=== PATIENT | female | born 1955 | race Hispanic/Latino ===

== ENCOUNTER 2018-04-17 08:20 | Emergency (ER) | payer BC ==
[~2018-04-17] VITALS: Ht 152.4 cm; Wt 69.4 kg
[2018-04-17] MEDS ORDERED: SODIUM CHLORIDE 0.9% 1000ML 1,000 ML IV STA (08:31)
[2018-04-17] MEDS ORDERED: ONDANSETRON HCL INJ 2 MG/ML VIAL IV STA (08:31)
[2018-04-17] MEDS ORDERED: ATORVASTATIN CA10 MG PO (08:36)
[2018-04-17] MEDS ORDERED: JANUVIA100 MG PO (08:36)
[2018-04-17] MEDS ORDERED: METFORMIN HCL500 MG PO (08:36)
[2018-04-17] MEDS ORDERED: MORPHINE SULFATE 5 MG/ML VIAL IV ONE (08:45)
[2018-04-17 09:00] LABS: BASOPHILS % 0.3 % (0.0-1.0); HEMATOCRIT 41.2 % (34.2-44.1); HEMOGLOBIN 13.7 g/dL (12.0-16.0); LYMPHOCYTES # (AUTO) 0.7 (1.0-3.2); LYMPHOCYTES % 8.8 % (18.0-39.1); MEAN CORPUSCULAR HGB CONC 33.3 g/dL (31-35); MEAN CORPUSCULAR VOLUME 87.3 fL (81-99); MONOCYTES # (AUTO) 0.4 (0.2-0.8); MONOCYTES % 4.4 % (4.4-11.3); NEUTROPHILS # (AUTO) 6.8 (2.1-6.9); NEUTROPHILS % 86.2 % (38.7-80.0); PLATELET COUNT 206 x10e3/uL (140-360); RED BLOOD COUNT 4.72 x10e6/uL (3.6-5.1); RED CELL DISTRIBUTION WIDTH 12.3 % (11.7-14.4)
--- NOTE | 2018-04-17 09:17 | Diagnostic Imaging Report ---
EXAMINATION: CHEST SINGLE (PORTABLE) INDICATION: \S\ABD PAIN \S\Y COMPARISON: None FINDINGS: AP view TUBES and LINES: None. LUNGS: Lungs are well inflated. Lungs are clear. There is no evidence of pneumonia or pulmonary edema. PLEURA: No pleural effusion or pneumothorax. HEART AND MEDIASTINUM: The cardiomediastinal silhouette is unremarkable. BONES AND SOFT TISSUES: No acute osseous lesion. Soft tissues are unremarkable. UPPER ABDOMEN: No free air under the diaphragm. IMPRESSION: No acute thoracic abnormality. Signed by: DR. Jori Jarvis MD on 04/17/2018 9:10 AM
[2018-04-17 09:19] LABS: ALANINE AMINOTRANSFERASE 13 IU/L (0-55); ALBUMIN 4.5 g/dL (3.5-5.0); ALBUMIN/GLOBULIN RATIO 1.2 (0.8-2.0); ALKALINE PHOSPHATASE 78 IU/L (40-150); ANION GAP 16.6 mmol/L (8-16); BLOOD UREA NITROGEN 20 mg/dL (7-26); BUN/CREATININE RATIO 28 (6-25); CALCIUM 10.4 mg/dL (8.4-10.2); CARBON DIOXIDE 25 mmol/L (22-29); CHLORIDE 98 mmol/L (98-107); CREATINE KINASE 116 IU/L (29-168); CREATININE, SERUM 0.72 mg/dL (0.57-1.11); EST GLOMERULAR FILTRATION RATE > 60 ML/MIN (60-); GLUCOSE 171 mg/dL (74-118); LIPASE 18 U/L (8-78); POTASSIUM 3.6 mmol/L (3.5-5.1); SODIUM 136 mmol/L (136-145)
[2018-04-17] MEDS ORDERED: MORPHINE SULFATE INJ 4 MG/ML INJ IV ONE (10:00)
[2018-04-17 10:20] LABS: CLARITY,URINE HAZY (CLEAR); COLOR,URINE YELLOW (YELLOW)
[2018-04-17 10:28] LABS: BILIRUBIN,URINE NEGATIVE (NEGATIVE); KETONES,URINE NEGATIVE (NEGATIVE); LEUKOCYTE ESTERASE ,URINE NEGATIVE (NEGATIVE); NITRITE,URINE NEGATIVE (NEGATIVE); PROTEIN,URINE DIPSTICK 2+ (NEGATIVE); URINE UROBILINOGEN 0.2 mg/dL (0.2 - 1)
[2018-04-17 10:29] LABS: BACTERIA,URINE FEW /HPF; EPITHELIAL CELLS,URINE FEW /LPF; WBC,URINE (MAN) 0-5 /HPF (0-5)
--- NOTE | 2018-04-17 10:36 | Diagnostic Imaging Report ---
EXAM: CT Abdomen and Pelvis WITH contrast INDICATION: \S\ABD PAIN \S\Y COMPARISON: None. TECHNIQUE: Abdomen and pelvis were scanned utilizing a multidetector helical scanner from the lung base to the pubic symphysis after administration of IV contrast. Coronal and sagittal reformations were obtained. Routine protocol was performed. Scan was performed when during portal venous phase. IV CONTRAST: 100 mL of Isovue-370 ORAL CONTRAST: Water COMPLICATIONS: None RADIATION DOSE: Total DLP: 340.6 mGy*cm Estimated effective dose: (DLP x 0.015 x size factor) mSv CTDIvol has been reviewed. It is below the limits set by the Radiation Protocol Committee (RPC). FINDINGS: LINES and TUBES: None. LOWER THORAX: Mild dependent atelectasis. Right lower lobe calcified granuloma. HEPATOBILIARY: Diffuse hypoattenuation of the liver relative to the spleen, suggestive of steatosis. No focal hepatic lesions. No biliary ductal dilation. GALLBLADDER: No radio-opaque stones or sludge. No wall thickening. SPLEEN: No splenomegaly. PANCREAS: No focal masses or ductal dilatation. ADRENALS: No adrenal nodules KIDNEYS/URETERS: Mild bilateral renal scarring. Kidneys enhance symmetrically. No hydronephrosis. No cystic or solid mass lesions. No stones. GI TRACT: No abnormal distention, wall thickening, or evidence of bowel obstruction. Appendix is normal. PELVIC ORGANS/BLADDER: Hysterectomy. Bladder is minimally distended but otherwise unremarkable. LYMPH NODES: No lymphadenopathy. VESSELS: There is mild atherosclerotic disease in the aorta and major arterial branches. No abdominal aortic aneurysm. PERITONEUM / RETROPERITONEUM: No free air or fluid. Ventral hernia repair with mesh. BONES: Bilateral L5 pars defects with grade 2 anterolisthesis of L5 on S1 of approximately 1.2 cm. SOFT TISSUES: Unremarkable. IMPRESSION: No acute abnormalities in the abdomen and pelvis. Signed by: DR. Jori Jarvis MD on 04/17/2018 10:32 AM
[2018-04-17] MEDS ORDERED: KEFLEX500 MG PO (10:52)
[2018-04-17] MEDS ORDERED: SODIUM CHLORIDE 0.9% 50ML 50 ML ONE (18:10)
[2018-04-17] MEDS ORDERED: IOPAMIDOL 370 MG/ML 200 ML INFUS..BTL INJ ONE (18:10)
== END 2018-04-17 13:53 | disposition home or self-care (01) ==
LOC: ER 08:20
DX: R10.13 Epigastric pain (principal); R11.2 Nausea with vomiting, unspecified; R31.9 Hematuria, unspecified; K29.00 Acute gastritis without bleeding
CPT/HCPCS: 36415; 71045; 74177; 80053; 81001; 82550; 82553; 83690; 84484; 85025; 93005; 99284; J2270; J2405; J7030; Q9967

== ENCOUNTER → 2018-07-09 | Day surgery (SDC) | payer BC ==
[2018-07-06 13:22] LABS: ANION GAP 14.1 mmol/L (8-16); BLOOD UREA NITROGEN 11 mg/dL (7-26); BUN/CREATININE RATIO 16 (6-25); CALCIUM 10.3 mg/dL (8.4-10.2); CARBON DIOXIDE 25 mmol/L (22-29); CHLORIDE 104 mmol/L (98-107); CREATININE, SERUM 0.67 mg/dL (0.57-1.11); EST GLOMERULAR FILTRATION RATE > 60 ML/MIN (60-); GLUCOSE 94 mg/dL (74-118); POTASSIUM 4.1 mmol/L (3.5-5.1); SODIUM 139 mmol/L (136-145)
[~2018-07-09] MED LIST: ATORVASTATIN CA10 MG PO; DEXAMETHASONE SOD PHOS INJ 4 MG/ML VIAL ONE; FENTANYL CITRATE/PF 100MCG/2 ML INJ ONE; IOPAMIDOL 610MG/1ML 300 MG/ML VIAL IV ONE; JANUVIA100 MG PO; KEFLEX500 MG PO; LIDOCAINE HCL 2% LOCAL INJ 5 ML SDV VIAL INJ ONE; METFORMIN HCL500 MG PO; MIDAZOLAM HCL 2 MG/2 ML VIAL ONE; PROPOFOL IV EMULSION 10 MG/ML 20 ML VIAL ONE; SEVOFLURANE INHAL SOLN 250 ML PEN BTL ONE
--- OUTSIDE RECORDS SUMMARY | 2018-07-09 06:30 | XMS REPORT ---
Author [facility] Address Unknown Phone Unavailable Care Team Providers Care Lease Administrator Name Role Phone Urszula DUCKWORTH Unavailable Unavailable Problems This patient has no known problems. Allergies, Adverse Reactions, Alerts This patient has no known allergies or adverse reactions. Medications This patient has no known medications. Results Test Description Test Time Test Comments Text Results Atomic Results Result Comments CT ABDOMEN/PELVIS W 2018-04-17 10:24:00 [place] [address] Patient Name: PORTIA PLEITEZ MR #: [id number] : 1955 Age/Sex: 62/F Req #: [id number] [facility] Physician: Ordered by: SAVI DUCKWORTH MD Report #: [id number] Location: ER Room/Bed: Procedure: [id number] CT/CT ABDOMEN/PELVIS W Exam Date: Exam Time: REPORT STATUS: Signed EXAM: CT Abdomen and Pelvis WITH contrast INDICATION: COMPARISON: None. TECHNIQUE: Abdomen and pelvis were scanned utilizing a multidetector helical scanner from the lung base to the pubic symphysis after administration of IV contrast. Coronal and sagittal reformations were obtained. Routine protocol was performed. Scan was performed when during portal venous phase. IV CONTRAST: 100 mL of Isovue-370 ORAL CONTRAST: Water COMPLICATIONS: None RADIATION DOSE: Total DLP: 340.6 mGy*cm Estimated effective dose: (DLP x 0.015 x size factor) mSv CTDIvol has been reviewed. It is below the limits set by the Radiation Protocol Committee (RPC). FINDINGS: LINES and TUBES: None. LOWER THORAX: Mild dependent atelectasis. Right lower lobe calcified granuloma. HEPATOBILIARY: Diffuse hypoattenuation of the liver relative to the spleen, suggestive of steatosis. No focal hepatic lesions. No biliary ductal dilation. GALLBLADDER: No radio-opaque stones or sludge. No wall thickening. SPLEEN: No splenomegaly. PANCREAS: No focal masses or ductal dilatation. ADRENALS: No adrenal nodules KIDNEYS/URETERS: Mild bilateral renal scarring. Kidneys enhance symmetrically. No hydronephrosis. No cystic or solid mass lesions. No stones. GI TRACT: No abnormal distention, wall thickening, or evidence of bowel obstruction. Appendix is normal. PELVIC ORGANS/BLADDER: Hysterectomy. Bladder is minimally distended but otherwise unremarkable. LYMPH NODES: No lymphadenopathy. VESSELS: There is mild atherosclerotic disease in the aorta and major arterial branches. No abdominal aortic aneurysm. PERITONEUM / RETROPERITONEUM: No free air or fluid. Ventral hernia repair with mesh. BONES: Bilateral L5 pars defects with grade 2 anterolisthesis of L5 on S1 of approximately 1.2 cm. SOFT TISSUES: Unremarkable. IMPRESSION: No acute abnormalities in the abdomen and pelvis. Signed by: DR. Jori Coles MD on 04/17/2018 10:32 AM Dictated By: JORI COLES MD 1032 Transcribed By: PAOLA on 04/17/18 1032 COPY TO: SAVI DUCKWORTH MD CHEST SINGLE (PORTABLE) 2018-04-17 09:09:00 [place] [address] Patient Name: PORTIA PLEITEZ MR #: [id number] : 1955 Age/Sex: 62/F Req #: [id number] Adm Physician: Ordered by: SAVI DUCKWORTH MD Report #: [id number] Location: ER Room/Bed: Procedure: [id number] DX/CHEST SINGLE (PORTABLE) Exam Date: Exam Time: REPORT STATUS: Signed EXAMINATION: CHEST SINGLE (PORTABLE) INDICATION: COMPARISON: None FINDINGS: AP view TUBES and LINES: None. LUNGS: Lungs are well inflated. Lungs are clear. There is no evidence of pneumonia or pulmonary edema. PLEURA: No pleural effusion or pneumothorax. HEART AND MEDIASTINUM: The cardiomediastinal silhouette is unremarkable. BONES AND SOFT TISSUES: No acute osseous lesion. Soft tissues are unremarkable. UPPER ABDOMEN: No free air under the diaphragm. IMPRESSION: No acute thoracic abnormality. Signed by: DR. Jori Coles MD on 04/17/2018 9:10 AM Dictated By: JORI COLES MD 9 Transcribed By: PAOLA on 04/17/18909 COPY TO: SAVI DUCKWORTH MD US BREAST COMPLETE UNL LT/RT CLINICAL INDICATION: Prior abnormal mammogram. The patient has no complaints.MODALITY: Siemens Inspiration Full Field Digital Mammography, Isadora Affiniti 70GTECHNIQUE: Digital acquisition of the breasts is performed on the ACR accredited Full Field Digital Mammography Unit. Computer Assisted Detection (CAD) is then accomplished using [employer]. Imaging of the bilateral breasts is performed.Realtime and Doppler color breast imaging in all quadrants was performed on the bilateral breasts.FINDINGS:COMPARISON STUDY: Prior studies dating back to 2007The breasts are heterogeneously dense. This may lower the sensitivity of mammography.On mammography, there are no suspicious masses, calcifications or architectural distortion in either breast.Ultrasound of the bilateral breasts demonstrate no sonographic abnormalities in either breast or axilla.IMPRESSION:No mammographic or sonographic evidence of malignancy in either breast.RECOMMENDATION:Routine annual screening mammogram in 1 year is recommended.The findings were discussed with the patient.Category: BIRADS 1 - Negative. For internal use only BIRAD:B1X MAMMO DIGITAL MAMMOGRAPHY DIAGNOSTIC, BILAT CLINICAL INDICATION: Prior abnormal mammogram. The patient has no complaints.MODALITY: Siemens Inspiration Full Field Digital Mammography, Isadora Affiniti 70GTECHNIQUE: Digital acquisition of the breasts is performed on the ACR accredited Full Field Digital Mammography Unit. Computer Assisted Detection (CAD) is then accomplished using [employer]. Imaging of the bilateral breasts is performed.Realtime and Doppler color breast imaging in all quadrants was performed on the bilateral breasts.FINDINGS:COMPARISON STUDY: Prior studies dating back to 2007The breasts are heterogeneously dense. This may lower the sensitivity of mammography. On mammography, there are no suspicious masses, calcifications or architectural distortion in either breast.Ultrasound of the bilateral breasts demonstrate no sonographic abnormalities in either breast or axilla.IMPRESSION:No mammographic or sonographic evidence of malignancy in either breast.RECOMMENDATION: Routine annual screening mammogram in 1 year is r ecommended.The findings were discussed with the patient.Category: BIRADS 1 - Negative. For internal use only BIRAD:B1X
[2018-07-09] MEDS: CEFTRIAXONE SOD 1 GM VIAL ONE ×2 (07:20→07:36)
[2018-07-09 10:00] VITALS: BP 121/71
--- NOTE | 2018-07-09 13:11 | Operative Report ---
DATE OF PROCEDURE: July 09, 2018 PREOPERATIVE DIAGNOSES 1. Multiple chronic urinary tract infections. 2. Clinical signs and symptoms of interstitial cystitis. POSTOPERATIVE DIAGNOSES 1. Multiple chronic urinary tract infections. 2. Clinical signs and symptoms of interstitial cystitis. 3. Grade IV vaginal vault prolapse. 4. Atrophic vaginitis. OPERATIONS PERFORMED 1. Cystourethroscopy with hydrodistention (entirely separate procedure for clinical signs and symptoms of interstitial cystitis without hematuria). 2. Cystourethroscopy with left ureter catheterization and left retrograde pyelogram (separate procedure for multiple chronic urinary tract infections). 3. Cystourethroscopy with right ureter catheterization and right retrograde pyelogram (separate procedure for multiple chronic urinary tract infections). 4. Supervision of fluoroscopy. 5. Interpretation of retrograde pyelography. ANESTHESIA: General. ESTIMATED BLOOD LOSS: Minimal. COMPLICATIONS: None. INDICATIONS FOR PROCEDURE: Ms. Agosto is a 63-year-old female patient with multiple chronic urinary tract infections, who has had clinical symptoms of interstitial cystitis. She and I had a long discussion regarding the alternatives, the risks and benefits including doing nothing, cystoscopy, hydrodistention, IVP, retrograde pyelograms, and renal ultrasound. She voiced understanding of the options, of the alternatives, of the risks and the benefits and in order to avoid nephrotoxic dye, she elected to proceed with retrograde pyelograms and hydrodistention. PROCEDURE IN DETAIL: After informed consent was obtained, the patient was taken to the operative suite and placed supine on the operating table. Time out was taken. Patient underwent general anesthesia. She was placed in dorsal lithotomy position and sterilely prepped and draped in standard fashion for cystoscopy. A 21-Azerbaijani cystoscope was inserted per urethra. Of note, there was grade IV prolapse and positive vaginal atrophy. Panendoscopy revealed no tumors and no stones. Both ureteral orifices were in normal anatomic location and position and seem to efflux clear urine. Hydrodistention was performed, which revealed capacity of 1000 mL, no glomerulations and no Hunner's ulcers. Bilateral retrograde pyelograms were performed, which were normal. The bladder was then drained. The patient was awakened from anesthesia and transported to the recovery room in excellent condition. SUPERVISION OF FLUOROSCOPY AND INTERPRETATION OF RETROGRADE PYELOGRAPHY: I was present throughout the entire procedure and supervised the use of fluoroscopy. There was no radiologist present at any time. Attention was turned toward the left and right ureteral orifices, catheterized with 8-Azerbaijani cone-tipped catheter, and retrograde pyelograms performed revealing delicate ureters, delicate pelvicaliceal systems, no evidence of filling defects, no evidence of hydronephrosis. IMPRESSION: Normal retrograde pyelograms. Job#: [id number] ELIZABETH
== END | disposition home or self-care (01) ==
LOC: OR 06:28
PROVIDERS: ATTEND Urology
DX: N39.0 Urinary tract infection, site not specified (principal); N81.10 Cystocele, unspecified; N95.2 Postmenopausal atrophic vaginitis; R31.29 Other microscopic hematuria; R35.1 Nocturia; R10.30 Lower abdominal pain, unspecified; E11.9 Type 2 diabetes mellitus without complications; Z79.84 Long term (current) use of oral hypoglycemic drugs; Z01.810 Encounter for preprocedural cardiovascular examination; Z01.812 Encounter for preprocedural laboratory examination
CPT/HCPCS: 36415 ×2; 52005; 74420; 80048; 82948; 93005; C1758; J0696; J1100; J2001; J2250; J2704; Q9967